=== PATIENT | male | born 1980 | race Caucasian/White ===

== ENCOUNTER 2021-02-20 23:38 | Observation (INO) | payer MEDICARE ==
[2021-02-20] MEDS ORDERED: NALOXONE 0.4 MG/ML 1 ML VIAL IVP STA (23:59)
--- NOTE | 2021-02-21 00:06 | ED ---
Overdose HPI - General Chief Complaint: Overdose Stated Complaint: Overdose Time Seen by Provider: 02/20/21 23:38 Source: patient, RN notes reviewed, old records reviewed Mode of arrival: ambulatory Limitations: no limitations - History of Present Illness Initial Comments: This is a 40-year-old male to the ER for evaluation patient is an overdose responded to Narcan. Patient presents to the emergency department after Narcan response a little agitated to With a cough. Patient is refusing to answer questions and is evasive regarding events surrounding him ending up in the hospital. Patient does deny homicidal or suicidal thoughts Complaint: accidental overdose -: unknown Intent: unwilling to say How Overdose Was Discovered: family/friend present at time, called 911 Context: Accidental Overdose: wanted to get high Associated Symptoms: nausea/vomiting Treatments Prior to Arrival: none - Related Data Allergies Allergy/AdvReac Type Severity Reaction Status Date / Time No Known Allergies Allergy Verified 02/20/21 23:43 Review of Systems ROS Statement: Those systems with pertinent positive or pertinent negative responses have been documented in the HPI. ROS Other: All systems not noted in ROS Statement are negative. Past Medical History Past Medical History: Unable to Obtain History of Any Multi-Drug Resistant Organisms: None Reported Past Surgical History: Unable to Obtain Past Psychological History: Bipolar Smoking Status: Unknown if ever smoked Past Alcohol Use History: Unable to Obtain Past Drug Use History: Unable to Obtain General Exam General appearance: alert, in no apparent distress Head exam: Present: atraumatic, normocephalic, normal inspection Eye exam: Present: normal appearance, PERRL, EOMI. Absent: scleral icterus, conjunctival injection, periorbital swelling ENT exam: Present: normal exam, mucous membranes moist Neck exam: Present: normal inspection. Absent: tenderness, meningismus, l ymphadenopathy Respiratory exam: Present: normal lung sounds bilaterally. Absent: respiratory distress, wheezes, rales, rhonchi, stridor Cardiovascular Exam: Present: regular rate, normal rhythm, normal heart sounds. Absent: systolic murmur, diastolic murmur, rubs, gallop, clicks GI/Abdominal exam: Present: soft, normal bowel sounds. Absent: distended, tenderness, guarding, rebound, rigid Extremities exam: Present: normal inspection, full ROM, normal capillary refill. Absent: tenderness, pedal edema, joint swelling, calf tenderness Back exam: Present: normal inspection Neurological exam: Present: alert, oriented X3, CN II-XII intact Psychiatric exam: Present: normal affect, normal mood Skin exam: Present: warm, dry, intact, normal color. Absent: rash Course Vital Signs 02/20/21 02/21/21 23:39 00:00 Temperature 98 F Pulse Rate 130 H Respiratory 18 22 Rate Blood Pressure 113/73 O2 Sat by Pulse 98 Oximetry - Reevaluation(s) Reevaluation #1: 02/21/21 01:41 Medical record is reviewed Reevaluation #2: 02/21/21 01:42 Patient remains awake and alert, supplemental O2 is taken away and patient's oxygen remains normal Reevaluation #3: 02/21/21 01:42 Patient informed of results and questions are answered Reevaluation #4: 02/21/21 01:42 states he feels well is comfortable for discharge home Medical Decision Making - Medical Decision Making 40 male to the ER for overdose requiring Narcan. Patient refuses to admit respond to questioning pertaining to the events surrounding tonight. Patient is awake and alert and can be discharged home - Lab Data Result diagrams: 02/20/21 23:53 02/20/21 23:53 Lab Results 02/20/21 02/20/21 Range/Units 23:53 23:53 WBC 20.3 H (3.8-10.6) k/uL RBC 4.75 (4.30-5.90) m/uL Hgb 14.7 (13.0-17.5) gm/dL Hct 44.1 (39.0-53.0) % MCV 92.8 (80.0-100.0) fL MCH 30.9 (25.0-35.0) pg MCHC 33.3 (31.0-37.0) g/dL RDW 13.1 (11.5-15.5) % Plt Count 298 (150-450) k/uL MPV 7.7 Neutrophils % 87 % Lymphocytes % 6 % Monocytes % 5 % Eosinophils % 1 % Basophils % 0 % Neutrophils # 17.8 H (1.3-7.7) k/uL Lymphocytes # 1.3 (1.0-4.8) k/uL Monocytes # 1.0 (0-1.0) k/uL Eosinophils # 0.1 (0-0.7) k/uL Basophils # 0.1 (0-0.2) k/uL Sodium 139 (137-145) mmol/L Potassium 4.2 (3.5-5.1) mmol/L Chloride 111 H (98-107) mmol/L Carbon Dioxide 15 L (22-30) mmol/L Anion Gap 13 mmol/L BUN 19 (9-20) mg/dL Creatinine 1.57 H (0.66-1.25) mg/dL Est GFR (CKD-EPI)AfAm 62 (>60 ml/min/1.73 sqM) Est GFR (CKD-EPI)NonAf 54 (>60 ml/min/1.73 sqM) Glucose 133 H (74-99) mg/dL Calcium 9.6 (8.4-10.2) mg/dL Total Bilirubin 0.1 L (0.2-1.3) mg/dL AST 48 (17-59) U/L ALT 66 H (4-49) U/L Alkaline Phosphatase 69 (38-126) U/L Total Protein 7.3 (6.3-8.2) g/dL Albumin 4.5 (3.5-5.0) g/dL Salicylates <1.0 mg/dL Acetaminophen <10.0 ug/mL Serum Alcohol <10 mg/dL - EKG Data -: EKG Interpreted by Me (EKG is sinus tachycardia 123 WV 120 QRS 78 QTc 452) - Radiology Data Radiology results: report reviewed (Chest x-rays negative for acute disease), image reviewed Disposition Clinical Impression: Accidental drug overdose, Poisoning by opiates and related narcotics, other Disposition: HOME SELF-CARE Condition: Fair Instructions (If sedation given, give patient instructions): Adult Overdose (ED) Is patient prescribed a controlled substance at d/c from ED?: No Referrals: Kurtis Contreras MD [Primary Care Provider] - 1-2 days
[2021-02-21 00:14] LABS: Basophils # (A) 0.1 k/uL (0-0.2); Basophils % (A) 0 %; Eosinophils # (A) 0.1 k/uL (0-0.7); Eosinophils % (A) 1 %; HCT 44.1 % (39.0-53.0); HGB 14.7 gm/dL (13.0-17.5); Lymphocytes # (A) 1.3 k/uL (1.0-4.8); Lymphocytes % (A) 6 %; MCH 30.9 pg (25.0-35.0); MCHC 33.3 g/dL (31.0-37.0); MCV 92.8 fL (80.0-100.0); Mean Platelet Volume 7.7; Monocytes % (A) 5 %; Neutrophils # (A) 17.8 k/uL (1.3-7.7); Neutrophils % (A) 87 %; Platelet Count 298 k/uL (150-450); RBC 4.75 m/uL (4.30-5.90); RDW 13.1 % (11.5-15.5); WBC 20.3 k/uL (3.8-10.6)
--- NOTE | 2021-02-21 00:28 | XR ---
EXAMINATION TYPE: XR chest 1V portable DATE OF EXAM: 02/21/2021 COMPARISON: NONE HISTORY: Overdose TECHNIQUE: Single view FINDINGS: There is no heart failure nor confluent pneumonic infiltrate. Costophrenic angles are clear . There are chest leads. Bony thorax is intact. IMPRESSION: No active cardiopulmonary disease.
[2021-02-21 01:12] LABS: ALT 66 U/L (4-49); AST 48 U/L (17-59); Acetaminophen <10.0 ug/mL; African American GFR (CKD) 62 (>60 ml/min/1.73 sqM); Albumin 4.5 g/dL (3.5-5.0); Alcohol <10 mg/dL; Alkaline Phosphatase 69 U/L (38-126); Anion Gap 13 mmol/L; Blood Urea Nitrogen 19 mg/dL (9-20); Calcium 9.6 mg/dL (8.4-10.2); Carbon Dioxide 15 mmol/L (22-30); Chloride 111 mmol/L (98-107); Glucose 133 mg/dL (74-99); Non-African American GFR(CKD) 54 (>60 ml/min/1.73 sqM); Potassium 4.2 mmol/L (3.5-5.1); Salicylate <1.0 mg/dL; Sodium 139 mmol/L (137-145); Total Bilirubin 0.1 mg/dL (0.2-1.3); Total Protein 7.3 g/dL (6.3-8.2)
[2021-02-21] MEDS ORDERED: NALOXONE 0.4 MG/ML 1 ML VIAL IV PRN (02:24)
[2021-02-21] MEDS ORDERED: ONDANSETRON 4 MG/2 ML VIAL IVP PRN (02:24)
[2021-02-21 02:26] VITALS: RESP 18
--- NOTE | 2021-02-21 02:26 | ED ---
Medical Decision Making - Medical Decision Making 40-year-old male reevaluated after discharge and ambulation, patient became hypoxic. Patient put on supplemental O2 with return to normal oxygenation. Patient will need be admitted for monitoring regarding oxygen levels - Lab Data Result diagrams: 02/20/21 23:53 02/20/21 23:53 Lab Results 02/20/21 02/20/21 Range/Units 23:53 23:53 WBC 20.3 H (3.8-10.6) k/uL RBC 4.75 (4.30-5.90) m/uL Hgb 14.7 (13.0-17.5) gm/dL Hct 44.1 (39.0-53.0) % MCV 92.8 (80.0-100.0) fL MCH 30.9 (25.0-35.0) pg MCHC 33.3 (31.0-37.0) g/dL RDW 13.1 (11.5-15.5) % Plt Count 298 (150-450) k/uL MPV 7.7 Neutrophils % 87 % Lymphocytes % 6 % Monocytes % 5 % Eosinophils % 1 % Basophils % 0 % Neutrophils # 17.8 H (1.3-7.7) k/uL Lymphocytes # 1.3 (1.0-4.8) k/uL Monocytes # 1.0 (0-1.0) k/uL Eosinophils # 0.1 (0-0.7) k/uL Basophils # 0.1 (0-0.2) k/uL Sodium 139 (137-145) mmol/L Potassium 4.2 (3.5-5.1) mmol/L Chloride 111 H (98-107) mmol/L Carbon Dioxide 15 L (22-30) mmol/L Anion Gap 13 mmol/L BUN 19 (9-20) mg/dL Creatinine 1.57 H (0.66-1.25) mg/dL Est GFR (CKD-EPI)AfAm 62 (>60 ml/min/1.73 sqM) Est GFR (CKD-EPI)NonAf 54 (>60 ml/min/1.73 sqM) Glucose 133 H (74-99) mg/dL Calcium 9.6 (8.4-10.2) mg/dL Total Bilirubin 0.1 L (0.2-1.3) mg/dL AST 48 (17-59) U/L ALT 66 H (4-49) U/L Alkaline Phosphatase 69 (38-126) U/L Total Protein 7.3 (6.3-8.2) g/dL Albumin 4.5 (3.5-5.0) g/dL Salicylates <1.0 mg/dL Acetaminophen <10.0 ug/mL Serum Alcohol <10 mg/dL Critical Care Time Critical Care Time: Yes Total Critical Care Time: 31 Disposition Clinical Impression: Accidental drug overdose, Poisoning by opiates and related narcotics, other, Hypoxia Disposition: ADMITTED IP TO THIS [facility] Condition: Serious Instructions (If sedation given, give patient instructions): Adult Overdose (ED) Is patient prescribed a controlled substance at d/c from ED?: No Referrals: Kurtis Contreras MD [Primary Care Provider] - 1-2 days
[2021-02-21 05:48] VITALS: BP 111/84; PULSE 87; TEMP 98
--- NOTE | 2021-02-21 05:53 | P.HPIM ---
History of Present Illness H&P Date: 02/21/21 Chief Complaint: Drug overdose 40-year-old male he does not volunteer any information he does not answer any of my questions. History obtained from reviewing medical records and talking to the ED doc. Seems like patient was brought in by EMS as a family member or friend called 911 for suspecting overdose patient was given Narcan and he showed some improvement so EMS decided to bring him to the hospital in the ED patient was not open to with the staff and not volunteering any information. However again he was responsive to Narcan seemed like more alert in the ED and initial plan was for the ED doctor to discharge him home however as the patient was trying to get up and leave his oxygen saturation dropped and improved with supplemental oxygen for which we decided to keep him for observation as it's not clear what the patient overdosed on and what interventions are. However ED doc said the patient did mention that he was not suicidal or homicidal he was just trying to get high. Again I attempted to asked direct questions to the patient he refuses to answer anything and keeps saying I don't know Blood work did show leukocytosis, acute kidney injury with acidosis Chest x-ray unremarkable EKG sinus tachycardia Review of Systems Unable to obtain patient is not cooperative he answers by I dont know to everything Past Medical History Past Medical History: Unable to Obtain History of Any Multi-Drug Resistant Organisms: None Reported Past Surgical History: Unable to Obtain Past Psychological History: Bipolar Smoking Status: Unknown if ever smoked Past Alcohol Use History: Unable to Obtain Past Drug Use History: Unable to Obtain - Past Family History Family Family Medical History: Unable to Obtain Medications and Allergies Allergies Allergy/AdvReac Type Severity Reaction Status Date / Time No Known Allergies Allergy Verified 02/20/21 23:43 Physical Exam Vitals: Vital Signs Temp Pulse Resp BP Pulse Ox 02/21/21 02:24 91 18 108/78 97 02/21/21 00:00 22 02/20/21 23:39 98 F 130 H 18 113/73 98 Intake and Output 02/20/21 02/20/21 02/21/21 14:59 22:59 06:59 Other: Weight 72.575 kg Constitutional: No acute distress, patient is not cooperative with the interview however he gave me permission for full exam Eyes: Anicteric sclerae, moist conjunctiva, Pupils equal round reactive to light ENMT: NC/AT Oropharynx clear, no erythema, or exudates Neck: Supple, no masses, or JVD No carotid bruits No thyromegaly Lungs: Clear to auscultation Clear to percussion Normal respiratory effort, no accessory muscle use Cardiovascular: Heart regular in rate and rhythm, No murmurs, gallops, or rubs No peripheral edema Abdominal: Soft Nontender, no guarding, rebound or rigidity Abdomen moving with respiration Normoactive bowel sounds No hepatomegaly, No splenomegaly No palpable mass No abdominal wall hernia noted Skin: Normal temperature, tone, texture, turgor No induration No subcutaneous nodules No rash, lesions No ulcers Extremities: No digital cyanosis No clubbing Pedal pulses intact and symmetrical Radial pulses intact and symmetrical No calf tenderness Psychiatric: Alert and oriented to person, place Flat affect Neuro Muscles Strength 5/5 in all 4 extremities Sensation to light touch grossly present throughout Cranial nerves II-XII grossly intact No focal sensory deficits Lymphatics: no palpable cervical or supraclavicular , or inguinal lymph nodes Results CBC & Chem 7: 02/20/21 23:53 02/20/21 23:53 Labs: Abnormal Lab Results - Last 24 Hours (Table) 02/20/21 02/20/21 Range/Units 23:53 23:53 WBC 20.3 H (3.8-10.6) k/uL Neutrophils # 17.8 H (1.3-7.7) k/uL Chloride 111 H (98-107) mmol/L Carbon Dioxide 15 L (22-30) mmol/L Creatinine 1.57 H (0.66-1.25) mg/dL Glucose 133 H (74-99) mg/dL Total Bilirubin 0.1 L (0.2-1.3) mg/dL ALT 66 H (4-49) U/L Assessment and Plan Assessment: Drug overdose Per ED documentation denies suicidal ideation or homicidal ideation intention was supposed to be getting high Patient responsive to Narcan Check urine drug screen Negative levels of Tylenol, salicylate, alcohol Unknown social history patient refuses to answer Unknown psych history again patient refuses to answer Unknown past medical history patient doesn't answer Acute kidney injury IV fluid hydration Avoid nephrotoxic meds Monitor urine output Leukocytosis No identified source of infection No fever Monitor vital signs CODE STATUS: Full code DVT prophylaxis: Mechanical Discussed with: Patient, ER Anticipated length of stay less than than [address]: Home A total of 55 minutes was spent on the care of this complex patient more than 50% of the time was spent in counseling and care coordination.
[2021-02-21] MEDS ORDERED: SODIUM CHLORIDE 0.9% 1,000 ML IV SCH (06:00)
--- NOTE | 2021-02-21 11:40 | P.DS ---
Providers Date of admission: 02/21/21 02:24 Expected date of discharge: 02/21/21 Attending physician: Shawn Matute MD Consults: 02/21/21 05:54 Consult Physician Routine Consulting Provider: Lawson Gamble Consult Reason/Comments: drug overdose Do you want consulting provider notified?: Yes, Notify in am Primary care physician: Kurtis Contreras MD Hospital Course: PATIENT LEFT AGAINST MEDICAL ADVICE from emergency department this morning prior to my evaluation. Patient Condition at Discharge: Undetermined Plan - Discharge Summary Follow up Appointment(s)/Referral(s): Kurtis Contreras MD [Primary Care Provider] - 1-2 days Patient Instructions/Handouts: Adult Overdose (ED) Discharge Disposition: Left Against Medical Advice
== END 2021-02-21 06:46 | disposition left against medical advice (07) ==
LOC: EC 23:38 → 1SOBS 02-21 02:24
PROVIDERS: ADMIT Internal Medicine; ATTEND Internal Medicine
DX: T40.601A Poisoning by unspecified narcotics, accidental (unintentional), initial encounter (principal); R09.02 Hypoxemia; F31.9 Bipolar disorder, unspecified; N17.9 Acute kidney failure, unspecified; D72.829 Elevated white blood cell count, unspecified; Z53.21 Procedure and treatment not carried out due to patient leaving prior to being seen by health care provider
CPT/HCPCS: 99284; 96374; 93005; 80053; 82550; 85025; 80143; 80179; 71045; G0378; G0480; J2310; 80320